=== PATIENT | male | born 1955 | race Caucasian/White ===

== ENCOUNTER → 2019-03-02 | Outpatient (CLI) | payer OTHER | END | disposition home or self-care (01) | LOC: CVU 09:17 | PROVIDERS: ATTEND Physician Assistant | DX: Z01.818 Encounter for other preprocedural examination (principal); I35.1 Nonrheumatic aortic (valve) insufficiency; I10 Essential (primary) hypertension; E78.5 Hyperlipidemia, unspecified | CPT/HCPCS: C8929; Q9957 ==